=== PATIENT | male | born 1970 | race American Indian/Alaskan Native ===

== ENCOUNTER 2017-02-14 20:32 | Emergency (ER) | payer MEDICARE ==
[2017-02-15] MEDS ORDERED: XYLOCAINE 2% INFILTRATI ONE ×2 (02:08→02:09)
--- NOTE | 2017-02-15 04:11 | Emergency Department Report ---
- General Chief complaint: Wound/Laceration Stated complaint: SPIDER BITE TO FACE Time Seen by Provider: 02/15/17 03:49 Source: patient Mode of arrival: Ambulatory Limitations: No Limitations - Related Data Previous Rx's Medication Instructions Recorded Last Taken Type Hydrocodone Bit/Acetaminophen 1 tab PO Q6H PRN #20 tablet 02/08/13 Unknown Rx [Lortab 10-500 mg] predniSONE [Deltasone] 20 mg PO TID #15 tablet 02/08/13 Unknown Rx Sulfamethoxazole/Trimethoprim 1 each PO BID #20 tablet 02/15/17 Unknown Rx [Bactrim DS TAB] oxyCODONE /ACETAMINOPHEN [Percocet 2 tab PO Q6HR #20 tablet 02/15/17 Unknown Rx 5/325 mg] Allergies Allergy/AdvReac Type Severity Reaction Status Date / Time olive extract [[place]] Allergy Anaphylaxis Verified 02/08/13 02:55 Abscess Boil HPI - HPI Chief Complaint: Wound/Laceration Stated Complaint: SPIDER BITE TO FACE Time Seen by Provider: 02/15/17 03:49 Home Medications: Previous Rx's Medication Instructions Recorded Last Taken Type Hydrocodone Bit/Acetaminophen 1 tab PO Q6H PRN #20 tablet 02/08/13 Unknown Rx [Lortab 10-500 mg] predniSONE [Deltasone] 20 mg PO TID #15 tablet 02/08/13 Unknown Rx Sulfamethoxazole/Trimethoprim 1 each PO BID #20 tablet 02/15/17 Unknown Rx [Bactrim DS TAB] oxyCODONE /ACETAMINOPHEN [Percocet 2 tab PO Q6HR #20 tablet 02/15/17 Unknown Rx 5/325 mg] Allergies/Adverse Reactions: Allergies Allergy/AdvReac Type Severity Reaction Status Date / Time olive extract [[place]] Allergy Anaphylaxis Verified 02/08/13 02:55 ED Review of Systems ROS: Stated complaint: SPIDER BITE TO FACE Other details as noted in HPI ED Past Medical Hx - Past Medical History Previous Medical History?: Yes Additional medical history: L5 disc disease - Surgical History Past Surgical History?: Yes Additional Surgical History: Hernia Repair - Social History Smoking Status: Never Smoker - Medications Home Medications: Home Medications Medication Instructions Recorded Confirmed Last Taken Type Hydrocodone Bit/Acetaminophen 1 tab PO Q6H PRN #20 tablet 02/08/13 Unknown Rx [Lortab 10-500 mg] predniSONE [Deltasone] 20 mg PO TID #15 tablet 02/08/13 Unknown Rx Sulfamethoxazole/Trimethoprim 1 each PO BID #20 tablet 02/15/17 Unknown Rx [Bactrim DS TAB] oxyCODONE /ACETAMINOPHEN [Percocet 2 tab PO Q6HR #20 tablet 02/15/17 Unknown Rx 5/325 mg] ED Physical Exam - General Limitations: No Limitations General appearance: alert, in no apparent distress - Head Head exam: Present: atraumatic, other (LARGE SWELLING OVER ZYGOMATIC ARCH, ABSCESS, FLUCTUANT READY TO DRAIN) - Eye Eye exam: Present: normal appearance, EOMI - ENT ENT exam: Present: mucous membranes moist - Neck Neck exam: Present: normal inspection, full ROM - Respiratory Respiratory exam: Present: normal lung sounds bilaterally. Absent: respiratory distress, wheezes - Cardiovascular Cardiovascular Exam: Present: regular rate, normal rhythm. Absent: systolic murmur, diastolic murmur, rubs, gallop - GI/Abdominal GI/Abdominal exam: Present: soft, normal bowel sounds - Rectal Rectal exam: Present: deferred - Extremities Exam Extremities exam: Present: normal inspection - Back Exam Back exam: Present: normal inspection - Neurological Exam Neurological exam: Present: alert, oriented X3 - Psychiatric Psychiatric exam: Present: normal affect, normal mood - Skin Skin exam: Present: warm, dry, intact, normal color. Absent: rash ED Course Vital Signs 02/14/17 21:12 Temperature 98.1 F Pulse Rate 67 Respiratory 16 Rate Blood Pressure 111/67 O2 Sat by Pulse 100 Oximetry - I & D Face Type of Procedure: Complex Blade Size: 11 (LARGE AMOUNT OF PURULENT MATERILA GOTTEN OUT 3CC) I & D Procedure: betadine prep, sterile drapes applied, sterile dressing applied , gauze wick placed (IODOFORM GAUZE) - Nerve Block Consent Obtained: verbal consent Time Out Performed: Yes Local Anesthetic Used: Lidocaine 2% Amount of anesthesia used: 5 (5CC) Side: left Nerve Blocks: other (LEFT FACIAL NERVE) Procedure Successful: Yes Complications: none Patient Tolerated Procedure: well Critical care attestation.: If time is entered above; I have spent that time in minutes in the direct care of this critically ill patient, excluding procedure time. ED Disposition Clinical Impression: Facial abscess, Left facial numbness, Facial pain Disposition: TO HOME OR SELFCARE Is pt being admited?: No Does the pt Need Aspirin: No Condition: Stable Instructions: Mastoiditis in Children (ED), Abscess Incision and Drainage (ED) , Abscess (ED) Additional Instructions: RETURN IN 2 DAYS FOR WOUND CHECK AND REPACKING, AFTER THAT REPACK EVERY 3 DAYS YOURSELF Prescriptions: oxyCODONE /ACETAMINOPHEN [Percocet 5/325 mg] 2 tab PO Q6HR #20 tablet Sulfamethoxazole/Trimethoprim [Bactrim DS TAB] 1 each PO BID #20 tablet Referrals: PRIMARY CARE, [Primary Care Provider] - 3-5 Days Forms: Work/School Release Form(ED) Time of Disposition: 04:18
[2017-02-15] MEDS ORDERED: ROCEPHIN IM ONE (04:12)
[2017-02-15] MEDS ORDERED: XYLOCAINE 1% MPF 5 mL INFILTRATI ONE (04:12)
[2017-02-15] MEDS ORDERED: PERCOCET 5/325 PO ONE (04:13)
[2017-02-15 05:42] VITALS: BP 119/63
== END 2017-02-15 04:30 | disposition home or self-care (01) ==
LOC: ED 20:32
DX: L02.01 Cutaneous abscess of face (principal); R20.0 Anesthesia of skin; R51 Headache
CPT/HCPCS: 10061; 96372; 99282; J0696

== ENCOUNTER 2017-02-17 05:52 | Emergency (ER) | payer MEDICARE ==
[2017-02-17 06:02] VITALS: BP 119/75
[2017-02-17] MEDS ORDERED: ROCEPHIN ONE (07:37)
[2017-02-17] MEDS ORDERED: ULTRAM ONE (07:37)
[2017-02-17] MEDS ORDERED: ROCEPHIN IM ONE (07:44)
--- NOTE | 2017-02-17 07:45 | Emergency Department Report ---
Abscess Boil HPI - HPI Chief Complaint: Wound/Laceration Stated Complaint: WOUND CHECK- sp i/d l face Wed told to come back Time Seen by Provider: 02/17/17 07:40 Duration: 3 Days Location: Head Severity: Mild History: Yes Pain, Yes Insect Bite, No Fever, No Purulent Drainage, No Numbness , No Foreign Body, No Previous History Home Medications: Previous Rx's Medication Instructions Recorded Last Taken Type Sulfamethoxazole/Trimethoprim 1 each PO BID #20 tablet 02/15/17 Unknown Rx [Bactrim DS TAB] oxyCODONE /ACETAMINOPHEN [Percocet 2 tab PO Q6HR #20 tablet 02/15/17 Unknown Rx 5/325 mg] Allergies/Adverse Reactions: Allergies Allergy/AdvReac Type Severity Reaction Status Date / Time olive extract [[place]] Allergy Anaphylaxis Verified 02/08/13 02:55 ED Review of Systems ROS: Stated complaint: WOUND CHECK Other details as noted in HPI Comment: All other systems reviewed and negative Constitutional: denies: fever Skin: lesions ED Past Medical Hx - Past Medical History Previous Medical History?: Yes Additional medical history: L5 disc disease - Surgical History Past Surgical History?: Yes Additional Surgical History: Hernia Repair - Social History Smoking Status: Current Every Day Smoker Substance Use Type: None - Medications Home Medications: Home Medications Medication Instructions Recorded Confirmed Last Taken Type Sulfamethoxazole/Trimethoprim 1 each PO BID #20 tablet 02/15/17 Unknown Rx [Bactrim DS TAB] oxyCODONE /ACETAMINOPHEN [Percocet 2 tab PO Q6HR #20 tablet 02/15/17 Unknown Rx 5/325 mg] ED Abscess Boil Physical Exam - Exam General: Vital signs noted. No distress. Alert and acting appropriately. Size: 2 cm Exam: Yes Tenderness, Yes Normal Neurologic Exam, Yes Normal Circulation, No Fluctuance, No Surrounding Cellulites/Erythema, No Lymphangitis, No Crepitation , No Heart Murmur ED Course Vital Signs 02/17/17 05:57 Temperature 97.6 F Pulse Rate 67 Respiratory 16 Rate Blood Pressure 119/75 [Right] O2 Sat by Pulse 100 Oximetry - Reevaluation(s) Reevaluation #1: 02/17/17 07:42 sp i/d taking po meds packing removed will not repack bc on face he is taking po meds will give IM injection vss no fever neuro intact discussed wound care and follow up Critical care attestation.: If time is entered above; I have spent that time in minutes in the direct care of this critically ill patient, excluding procedure time. ED Medical Decision Making - Medical Decision Making no s/s systemic illness - Differential Diagnosis wound recheck ED Disposition Clinical Impression: Facial abscess Disposition: DC-01 TO HOME OR SELFCARE Is pt being admited?: No Does the pt Need Aspirin: No Condition: Stable Instructions: Abscess (ED) Additional Instructions: EPSOM SALT SOAKS TO FACE DISCUSSED CONTINUE MEDS HYDRATE WELL - WATER- WHILE ON BACTRIM MOTRIN OR TYLENOL FOR MILD PAIN PERC FOR SEVERE PAIN KEEP WOUND COVERED Referrals: PRIMARY CARE, [Primary Care Provider] - 3-5 Days EDUARDO PINON MD [Referring] - 3-5 Days Time of Disposition: 07:43
[2017-02-17] MEDS ORDERED: ULTRAM PO ONE (07:46)
== END 2017-02-17 08:04 | disposition home or self-care (01) ==
LOC: ED 05:52
DX: L02.01 Cutaneous abscess of face (principal); F17.200 Nicotine dependence, unspecified, uncomplicated
CPT/HCPCS: 96372; 99282; J0696

== ENCOUNTER 2018-06-29 11:17 | Emergency (ER) | payer MEDICARE ==
[2018-06-29 11:36] VITALS: BP 126/89
--- NOTE | 2018-06-29 11:41 | Emergency Department Report ---
Chief Complaint: Extremity Problem,Nontraumatic Stated Complaint: BACK PAIN Time Seen by Provider: 06/29/18 11:38 - HPI History of Present Illness: a/c back pain now his leg is weak and he can not work then last pm at work he dropped something that cost 20K job sent him here to get med clearance to be able to do his job his pcp is on admin leave ambulatory no fever no incontinence rx muscle relaxer- does not take routinely pmh none psh hernia cig no etoh no thc pcp on admin leave so he came here Dr Jacinto Alvarenga completed - Exam Vital Signs: Vital Signs 06/29/18 11:35 Temperature 97.7 F Pulse Rate 76 Respiratory 16 Rate Blood Pressure 126/89 [Right] O2 Sat by Pulse 99 Oximetry MSE screening note: Focused history and physical exam performed. Due to findings the following was ordered: ED Disposition for MSE Condition: Stable
[2018-06-29] MEDS ORDERED: TORADOL IM ONE (13:22)
[2018-06-29] MEDS ORDERED: IBUPROFEN PO ONE (13:31)
--- NOTE | 2018-06-29 13:35 | Emergency Department Report ---
ED Back Pain/Injury HPI - General Chief Complaint: Extremity Problem,Nontraumatic Stated Complaint: BACK PAIN Time Seen by Provider: 06/29/18 11:38 Source: patient Limitations: No Limitations - History of Present Illness Initial Comments: Patient is a 48-year-old male who has a history of chronic back pain who is presenting with exacerbation of his back pain. Patient states this is left side of his back and radiates down his left leg. Patient states that since being off quite some time and is not seeing orthopedics. Patient denies any new injury or any bowel or bladder dysfunction at this time. Patient states pain is 8 out of 10 in severity hurts worse with movement and better at rest. - Related Data Previous Rx's Medication Instructions Recorded Last Taken Type Sulfamethoxazole/Trimethoprim 1 each PO BID #20 tablet 02/15/17 Unknown Rx [Bactrim DS TAB] oxyCODONE /ACETAMINOPHEN [Percocet 2 tab PO Q6HR #20 tablet 02/15/17 Unknown Rx 5/325 mg] Ibuprofen [Ibu] 800 mg PO Q8H PRN #20 tablet 06/29/18 Unknown Rx methOCARBAMOL [Robaxin TAB] 500 mg PO Q6H PRN #14 tablet 06/29/18 Unknown Rx Allergies Allergy/AdvReac Type Severity Reaction Status Date / Time olive extract [[place]] Allergy Anaphylaxis Verified 02/08/13 02:55 ED Review of Systems ROS: Stated complaint: BACK PAIN Other details as noted in HPI Comment: All other systems reviewed and negative ED Past Medical Hx - Past Medical History L5 disc disease Family history: no significant family history ED Back Pain Physical Exam - Exam General: Vital signs noted. No distress. Alert and acting appropriately. Back/Abdomen: Yes Perilumbar Tenderness, No Abdominal Tenderness, No Perithoracic Tenderness, No Sacroiliac Tenderness, No Flank Tenderness, No Straight Leg Raise Pain Neuro: Yes Normal Sensation, Yes Normal DTR's, Yes Normal Gait, No Motor Weakness ED Course Vital Signs 06/29/18 06/29/18 11:35 11:38 Temperature 97.7 F 97.7 F Pulse Rate 76 76 Respiratory 16 17 Rate Blood Pressure 126/89 Blood Pressure 126/89 [Right] O2 Sat by Pulse 99 99 Oximetry ED Medical Decision Making - Medical Decision Making Patient was going to be referred to orthopedics. Patient does have Medicare or Medicaid and although he has not medical emergency at this time he has no cocaine. Patient to be discharged home. Critical care attestation.: If time is entered above; I have spent that time in minutes in the direct care of this critically ill patient, excluding procedure time. ED Disposition Clinical Impression: Exacerbation of chronic back pain Disposition: DC- TO HOME OR SELFCARE Is pt being admited?: No Does the pt Need Aspirin: No Condition: Stable Referrals: RHIANNA GUALLPA MD [Staff Physician] - 3-5 Days Time of Disposition: 13:35
== END 2018-06-29 13:55 | disposition home or self-care (01) ==
LOC: ED 11:17
DX: G89.29 Other chronic pain (principal); M54.9 Dorsalgia, unspecified; Z91.013 Allergy to seafood
CPT/HCPCS: 99282; J1885